=== PATIENT | male | born 1945 ===

== ENCOUNTER 2017-11-22 10:33 | Emergency (ER) | payer OTHER ==
[~2017-11-22] VITALS: Ht 162.6 cm; Wt 68.9 kg
[~2017-11-22 10:33] MED LIST: ALTACE5 MG; LIPITOR20 MG
== END 2017-11-22 14:24 | disposition home or self-care (01) ==
LOC: ER 10:33
DX: G45.8 Other transient cerebral ischemic attacks and related syndromes (principal)

== ENCOUNTER 2018-02-02 09:09 | Emergency (ER) | payer OTHER ==
[~2018-02-02] VITALS: Ht 162.6 cm; Wt 73.5 kg
[2018-02-02] MEDS ORDERED: INTESTINEX680 M1 PO (12:45)
[2018-02-02] MEDS ORDERED: ZANTAC300 MG PO (12:45)
== END 2018-02-02 14:16 | disposition home or self-care (01) ==
LOC: ER 09:09
DX: K52.89 Other specified noninfective gastroenteritis and colitis (principal)

== ENCOUNTER 2020-09-14 15:22 | Emergency (ER) | payer OTHER ==
[~2020-09-14] VITALS: Ht 162.6 cm; Wt 55.3 kg
[~2020-09-14 15:22] MED LIST changes: +INTESTINEX680 M1 PO; +ZANTAC300 MG PO
[2020-09-14] MEDS ORDERED: LIPITOR40 M1 PO (15:32)
[2020-09-14] MEDS ORDERED: RITALIN5 M1 PO (15:32)
[2020-09-14] MEDS ORDERED: BACTRIM DS TAB1 EACH PO (20:20)
== END 2020-09-14 20:34 | disposition home or self-care (01) ==
LOC: ER 15:22
DX: N39.0 Urinary tract infection, site not specified (principal); Z03.818 Encounter for observation for suspected exposure to other biological agents ruled out

== ENCOUNTER 2020-10-18 18:11 | Inpatient (IN) | payer OTHER ==
[~2020-10-18] VITALS: Ht 162.6 cm; Wt 55.3 kg
[~2020-10-18 18:11] MED LIST changes: +BACTRIM DS TAB1 EACH PO; +LIPITOR40 M1 PO; +RITALIN5 M1 PO
[2020-10-18] MEDS ORDERED: PROTONIX20 MG (18:25)
[2020-10-18] MEDS ORDERED: ZESTRIL20 MG (18:26)
[2020-11-02] MEDS ORDERED: ULTRAM50 MG PO (17:38)
[2020-11-02] MEDS ORDERED: INTESTINEX680 M2 PO (17:40)
[2020-11-02] MEDS ORDERED: PEPCID AC20 MG PO (17:40)
== END 2020-11-02 18:35 | disposition home or self-care (01) | DRG 654 ==
LOC: ER 18:11 → SURH 10-19 12:00 → SEC-K 10-19 12:00 → SURH 10-19 13:31
PROVIDERS: Surgery; Urology; ADMIT Internal Medicine Geriatric Medicine; ATTEND Internal Medicine Geriatric Medicine
PROC: 8E0ZXY6 Isolation (ICD-10-PCS; 2020-10-19)
PROC: 02HV33Z Insertion of Infusion Device into Superior Vena Cava, Percutaneous Approach (ICD-10-PCS; 2020-10-19)
PROC: 0DJD8ZZ Inspection of Lower Intestinal Tract, Via Natural or Artificial Opening Endoscopic (ICD-10-PCS; 2020-10-24)
PROC: 0TQB4ZZ Repair Bladder, Percutaneous Endoscopic Approach (ICD-10-PCS; principal; 2020-10-28 15:45)
PROC: 0DBN4ZZ Excision of Sigmoid Colon, Percutaneous Endoscopic Approach (ICD-10-PCS; 2020-10-28 15:45)
PROC: 0T788DZ Dilation of Bilateral Ureters with Intraluminal Device, Via Natural or Artificial Opening Endoscopic (ICD-10-PCS; 2020-10-30)
DX: N32.1 Vesicointestinal fistula (principal); N39.0 Urinary tract infection, site not specified; I13.10 Hypertensive heart and chronic kidney disease without heart failure, with stage 1 through stage 4 chronic kidney disease, or unspecified chronic kidney disease; N18.31 Chronic kidney disease, stage 3a; K57.30 Diverticulosis of large intestine without perforation or abscess without bleeding